=== PATIENT | male | born 1995 | race Caucasian/White ===

== ENCOUNTER 2024-03-26 06:22 | Emergency (ER) | payer SELFPAY ==
[~2024-03-26] VITALS: Ht 180.3 cm; Wt 94.0 kg
[2024-03-26 07:03] VITALS: O2SAT 100
[2024-03-26 07:11] LABS: BASOPHILS % 0.5 % (0.0-2.0); EOSINOPHILS % 1.2 % (0.0-5.0); HEMATOCRIT. 47.5 % (42.0-52.0); HEMOGLOBIN. 16.1 g/dL (14.0-18.0); LYMPHOCYTES % 20.5 % (20.0-50.0); MEAN CORPUSCULAR HEMOGLOBIN 31.8 pg (28.0-32.0); MEAN CORPUSCULAR HGB CONC 33.8 g/dL (31.0-37.0); MEAN CORPUSCULAR VOLUME 94.1 fL (80.0-94.0); MEAN PLATELET VOLUME 8.5 fl (7.4-10.4); MONOCYTES % 4.7 % (2.0-8.0); NEUTROPHILS % 73.1 % (40.0-76.0); PLATELET 295 x1000/uL (130-400); RED BLOOD CELL COUNT 5.05 mill/uL (4.7-6.1); RED CELL DISTRIBUTION WIDTH 13.2 % (11.6-14.6); WHITE BLOOD COUNT 8.6 x1000/uL (4.5-11.0)
[2024-03-26 07:15] LABS: CARBON DIOXIDE 28 mEq/L (21-32); CHLORIDE 105 mEq/L (98-107); POTASSIUM 4.6 mEq/L (3.5-5.1); SODIUM 138 mEq/L (136-145)
[2024-03-26 07:16] LABS: CALCIUM 9.7 mg/dL (8.7-10.4)
[2024-03-26 07:17] LABS: CLARITY URINE CLEAR (CLEAR); COLOR URINE YELLOW (YELLOW); GLUCOSE URINE NEGATIVE (NEGATIVE); KETONES URINE 1+ (NEGATIVE); LEUKOCYTE ESTERASE URINE NEGATIVE (NEGATIVE); NITRITE URINE NEGATIVE (NEGATIVE); OCCULT BLOOD URINE NEGATIVE (NEGATIVE); PROTEIN URINE NEGATIVE (NEGATIVE); SPECIFIC GRAVITY URINE 1.016 (1.005-1.030)
[2024-03-26 07:20] LABS: CREATININE 0.9 mg/dL (0.6-1.3); GLUCOSE 102 mg/dL (70-105)
[2024-03-26 07:21] LABS: UREA NITROGEN BLOOD 11 mg/dL (9-23)
[2024-03-26 07:22] LABS: ALANINE AMINOTRANSFERASE 19 IU/L (10-49); ALBUMIN 4.8 g/dL (3.2-4.8); ASPARTATE AMINOTRANSFERASE 16 IU/L (<34)
[2024-03-26 07:23] LABS: BILIRUBIN DIRECT 0.3 mg/dL (<=3.0); BILIRUBIN TOTAL 1.2 mg/dL (0.1-1.0); PROTEIN TOTAL 7.4 g/dL (6.0-8.3)
[2024-03-26] MEDS ORDERED: IMOD MT (10:22)
[2024-03-26] MEDS ORDERED: IBUP-2030 MT (10:22)
[2024-03-26 10:31] VITALS: BP 122/77; PULSE 75; RESP 18; TEMP 36.72516; O2SAT 100
== END 2024-03-26 10:32 | disposition home or self-care (01) ==
LOC: ER 06:35
DX: A08.4 Viral intestinal infection, unspecified (principal)
CPT/HCPCS: 36415; 74176; 80048; 80076; 81003; 85025; 99284

== ENCOUNTER 2024-04-21 19:24 | Emergency (ER) | payer SELFPAY ==
[~2024-04-21] VITALS: Ht 172.7 cm; Wt 91.0 kg
[~2024-04-21 19:24] MED LIST: IBUP-2030 MT; IMOD MT
[2024-04-21 19:39] VITALS: BP 129/75; O2SAT 99
[2024-04-21 19:45] VITALS: PULSE 79; O2SAT 99
[2024-04-21] MEDS: KETOROLAC 15MG/ML VIAL IM ONE (20:15)
[2024-04-21] MEDS: DEXAMETHASONE 10 MG/ML VIAL IM ONE (20:15)
[2024-04-21] MEDS: METOCLOPRAMIDE HCL 10MG TABLET PO ONE (20:15)
[2024-04-21 21:17] LABS: CLARITY URINE CLEAR (CLEAR); COLOR URINE YELLOW (YELLOW); GLUCOSE URINE NEGATIVE (NEGATIVE); KETONES URINE NEGATIVE (NEGATIVE); LEUKOCYTE ESTERASE URINE TRACE (NEGATIVE); NITRITE URINE NEGATIVE (NEGATIVE); OCCULT BLOOD URINE NEGATIVE (NEGATIVE); PROTEIN URINE NEGATIVE (NEGATIVE); SPECIFIC GRAVITY URINE 1.008 (1.005-1.030); UROBILINOGEN URINE 0.2 E.U./dL (0.2-1.0)
[2024-04-21 21:35] LABS: BACTERIA URINE NONE SEEN; RBC URINE NONE SEEN /hpf (0-2); SQUAMOUS EPITHELIAL CELL URINE RARE /lpf (RARE/1+); WBC URINE 0-2 /hpf (0-2)
[2024-04-21] MEDS ORDERED: [UNRECOGNIZED DRUG - CODE] MM (22:06)
== END 2024-04-21 23:03 | disposition home or self-care (01) ==
LOC: ER 19:24
DX: B34.9 Viral infection, unspecified (principal); N50.811 Right testicular pain
CPT/HCPCS: 99284; 81003; 87430; 87070; 96372; J8597; J1100; J1885

== ENCOUNTER 2024-08-09 11:34 | Emergency (ER) | payer SELFPAY ==
[~2024-08-09] VITALS: Ht 177.8 cm; Wt 100.0 kg
[~2024-08-09 11:34] MED LIST changes: +[UNRECOGNIZED DRUG - CODE] MM
[2024-08-09 11:36] VITALS: O2SAT 98
[2024-08-09 11:43] VITALS: BP 124/73; PULSE 100; RESP 18; TEMP 37.2; O2SAT 99
[2024-08-09 18:02] LABS: BASOPHILS % 0.6 % (0.0-2.0); EOSINOPHILS % 1.4 % (0.0-5.0); HEMATOCRIT. 49.4 % (42.0-52.0); LYMPHOCYTES % 37.2 % (20.0-50.0); MEAN CORPUSCULAR HEMOGLOBIN 32.6 pg (28.0-32.0); MEAN CORPUSCULAR HGB CONC 34.4 g/dL (31.0-37.0); MEAN CORPUSCULAR VOLUME 94.7 fL (80.0-94.0); MEAN PLATELET VOLUME 8.6 fl (7.4-10.4); MONOCYTES % 5.1 % (2.0-8.0); NEUTROPHILS % 55.7 % (40.0-76.0); PLATELET 332 x1000/uL (130-400); RED BLOOD CELL COUNT 5.21 mill/uL (4.7-6.1); RED CELL DISTRIBUTION WIDTH 12.5 % (11.6-14.6); WHITE BLOOD COUNT 7.9 x1000/uL (4.5-11.0)
[2024-08-09 18:04] LABS: CHLORIDE 104 mEq/L (98-107); PROTHROMBIN TIME 10.9 sec (9.6-11.0); SODIUM 141 mEq/L (136-145)
[2024-08-09 18:05] LABS: CALCIUM 10.1 mg/dL (8.7-10.4); CARBON DIOXIDE 26 mEq/L (21-32)
[2024-08-09 18:10] LABS: CREATININE 0.9 mg/dL (0.6-1.3); GLUCOSE 87 mg/dL (70-105); UREA NITROGEN BLOOD 17 mg/dL (9-23)
[2024-08-09 18:11] LABS: TROPONIN I HIGH SENSITIVITY 40 ng/L (3.0-53)
[2024-08-09 19:20] LABS: ALANINE AMINOTRANSFERASE 25 IU/L (10-49); ALBUMIN 5.1 g/dL (3.2-4.8); ASPARTATE AMINOTRANSFERASE 21 IU/L (<34); BILIRUBIN DIRECT 0.3 mg/dL (<=3.0)
[2024-08-09 19:21] LABS: BILIRUBIN TOTAL 1.2 mg/dL (0.1-1.0); PROTEIN TOTAL 7.8 g/dL (6.0-8.3)
[2024-08-09 21:43] LABS: TROPONIN I HIGH SENSITIVITY 41 ng/L (3.0-53)
== END 2024-08-09 23:46 | disposition home or self-care (01) ==
LOC: ER 11:34
DX: R10.9 Unspecified abdominal pain (principal); F17.200 Nicotine dependence, unspecified, uncomplicated
CPT/HCPCS: 36415; 71045; 80048; 80076; 84484; 85025; 86850; 86900; 93005; 99285